=== PATIENT | male | born 2000 | race Caucasian/White ===

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

== ENCOUNTER 2021-01-11 09:25 | Emergency (ER) | payer OTHER ==
[2021-01-11 09:28] VITALS: BP 130/78; PULSE 83; RESP 16; TEMP 98.6
[2021-01-11] MEDS ORDERED: ACETAMINOPHEN TAB 500 MG TAB PO STA (09:49)
--- NOTE | 2021-01-11 09:49 | ED ---
ENT HPI - General Chief complaint: ENT Stated complaint: dental & ear pain Time Seen by Provider: 01/11/21 09:37 Source: patient Mode of arrival: ambulatory Limitations: no limitations - History of Present Illness Initial comments: Patient is a 20-year-old male presenting to emergency Department with complaints of right ear pain and right-sided dental pain over the past 2-3 days. He states he thought he was having a sore tooth over the past week but then yesterday and today he started having right ear pain. He denies any sore throat, no cough or cold-like symptoms. No fevers or chills. He is having a mild headache as well. No blurry vision, no dizziness, no lightheadedness. He denies any further complaints at this time. His vitals are stable upon arrival. - Related Data Home Medications Medication Instructions Recorded Confirmed Clindamycin HCl 300 mg PO TID 06/15/18 06/15/18 Ibuprofen [Motrin] 600 mg PO Q6H PRN 06/15/18 06/15/18 Previous Rx's Medication Instructions Recorded Famotidine [Pepcid] 20 mg PO BID #20 tablet 06/15/18 Acetaminophen Tab [Tylenol] 650 mg PO Q4H #30 tab 06/26/19 Fluticasone Nasal [place] [Flonase 1 spray EA NOSTRIL DAILY #1 bottle 06/26/19 Nasal [place]] methylPREDNISolone Dose Pack 4 mg PO DIRECTED #21 package 06/26/19 [Medrol Dose Pack] Allergies Allergy/AdvReac Type Severity Reaction Status Date / Time amoxicillin [From Augmentin] AdvReac Nausea & Verified 01/11/21 09:28 Vomiting & Diarrhea clavulanic acid AdvReac Nausea & Verified 01/11/21 09:28 [From Augmentin] Vomiting & Diarrhea Review of Systems ROS Statement: Those systems with pertinent positive or pertinent negative responses have been documented in the HPI. ROS Other: All systems not noted in ROS Statement are negative. 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 Patient is nontoxic and in no acute distress. HEAD: Atraumatic, normocephalic. EYES: Pupils equal round and reactive to light, extraocular movements intact, sclera anicteric, conjunctiva are normal. Eyelids were unremarkable. ENT: TMs normal, nares patent, oropharynx clear without exudates. Moist mucous membranes. Some discomfort along the right lower gumline towards the back, no visible dental abscess seen. NECK: Normal range of motion, supple without lymphadenopathy or JVD. LUNGS: Unlabored respirations. Breath sounds clear to auscultation bilaterally and equal. No wheezes rales or rhonchi. HEART: Regular rate and rhythm without murmurs, rubs or gallops. ABDOMEN: Soft, nontender, normoactive bowel sounds. No guarding, no rebound. No masses appreciated. : Deferred MUSCULOSKELETAL: Normal extremities with adequate strength and normal range of motion, no pitting or edema. No clubbing or cyanosis. SKIN: Warm, Dry, normal turgor, no rashes or lesions noted. Limitations: no limitations Course Vital Signs 01/11/21 09:26 Temperature 98.6 F Pulse Rate 83 Respiratory 16 Rate Blood Pressure 130/78 O2 Sat by Pulse 98 Oximetry Medical Decision Making - Medical Decision Making Patient is a 20-year-old male here with right ear pain and right-sided dental pain over the past few days. No fevers his vitals are stable. On exam, he does have some pain with palpation on the right lower gumline consistent with a possible dental abscess. His ears look unremarkable. I will start him on penicillin for possible dental abscess and recommended following up with his dentist. He is agreeable to this. He did want a work note. I also give some Tylenol for discomfort. He is agreeable as planned care and is stable for discharge. Case discussed with Dr. Perez. Disposition Clinical Impression: Pain, dental, Right ear pain Disposition: HOME SELF-CARE Condition: Stable Instructions (If sedation given, give patient instructions): Toothache (ED) Additional Instructions: Please return to the Emergency Department if symptoms worsen or any other concerns. Take antibiotic as prescribed. Please follow up with your dentist as discussed. Take Tylenol and/or Motrin for any discomfort. Is patient prescribed a controlled substance at d/c from ED?: No Referrals: Destin Chatman MD [Primary Care Provider] - 1-2 days Time of Disposition: 09:49
== END 2021-01-11 09:58 | disposition home or self-care (01) ==
LOC: EC 09:25
DX: H92.01 Otalgia, right ear (principal); K08.89 Other specified disorders of teeth and supporting structures; Z88.1 Allergy status to other antibiotic agents; Z90.89 Acquired absence of other organs; Z87.891 Personal history of nicotine dependence
CPT/HCPCS: 99283

== ENCOUNTER → 2021-12-08 | Outpatient (CLI) | payer OTHER | END | disposition home or self-care (01) | LOC: LABWHC1 13:00 | PROVIDERS: ATTEND Psychiatry & Neurology Pain Medicine | DX: Q85.01 Neurofibromatosis, type 1 (principal) | CPT/HCPCS: 36415; 82550; 93005 ==